=== PATIENT | female | born 1945 | race African-American/Black ===

== ENCOUNTER 2023-07-19 14:19 | Outpatient (CLI) | payer MEDICARE, BC, SELFPAY ==
--- NOTE | 2023-07-19 14:39 | ECG_ITS ---
Measurements Intervals [place] Rate: 73 P: 36 TN: 154 QRS: -35 QRSD: 95 T: 7 QT: 384 QTc: 424 Interpretive Statements SINUS RHYTHM MARKED LEFT AXIS DEVIATION [QRS AXIS < -30] LOW QRS VOLTAGE IN PRECORDIAL LEADS [QRS DEFLECTION < 1.0 mV IN CHEST LEADS] NO PREVIOUS ECG AVAILABLE FOR COMPARISON Electronically Signed On 07-19-2023 16:08:12 ACCOUNT CONTACT ASSOCIATE by Justen Daigle M.D.
[2023-07-19 15:05] LABS: Anion Gap 11 mmol/L (8-16); Blood Urea Nitrogen 18 mg/dL (7-17); Calcium 9.5 mg/dL (8.4-10.2); Carbon Dioxide 30 mmol/L (22-30); Chloride 97 mmol/L (98-107); Estimated Glomerular Filt Rate > 60; Glucose 356 mg/dL (65-110); Potassium 3.8 mmol/L (3.4-5.0); Sodium 138 mmol/L (137-145)
[2023-07-19 15:06] LABS: INR 0.9; Partial Thromboplastin Time 23.6 SECONDS (22.3-36.8); Prothrombin Time 12.8 Seconds (11.1-14.7)
== END 2023-07-19 14:20 | disposition home or self-care (01) ==
PROVIDERS: Anesthesiology; PCP Family Medicine; Visit Provider Urology
DX: Z01.818 Encounter for other preprocedural examination (principal); N20.0 Calculus of kidney; E11.9 Type 2 diabetes mellitus without complications; R93.1 Abnormal findings on diagnostic imaging of heart and coronary circulation
CPT/HCPCS: 36415; 80048; 85610; 85730; 87086; 87147; 87181; 87186; 93005

== ENCOUNTER 2023-08-01 10:08 | Outpatient (CLI) | payer MEDICARE, BC, SELFPAY ==
[2023-08-01 10:48] LABS: INR 0.9; Prothrombin Time 12.1 Seconds (11.1-14.7)
[2023-08-01 10:49] LABS: Partial Thromboplastin Time 23.2 SECONDS (22.3-36.8)
== END 2023-08-01 10:09 | disposition home or self-care (01) ==
LOC: ANHSURGERY 10:10
PROVIDERS: PCP Family Medicine; Visit Provider Urology
DX: Z01.812 Encounter for preprocedural laboratory examination (principal); N20.0 Calculus of kidney
CPT/HCPCS: 36415; 85610; 85730; 87086

== ENCOUNTER 2023-08-05 00:28 | Day surgery (SDC) | payer MEDICARE, BC, SELFPAY ==
--- NOTE | 2023-07-19 13:31 | PC.NURSE ---
Report to the Outpatient Waiting Room, entrance under the green pavilion located off [facility], at time _0930 on date _07/22/23 . Planned Procedure Time: _1130 . Time changes happen often and if your time is changed the preop area will call you the afternoon before. - You and your visitor will be asked to self-screen and do not enter if you have any COVID symptoms. - A mask is optional within the hospital at this time. Patients may have clear liquids (water, carbonated beverages, clear teas, apple juice) until 3 hours prior to surgery(8:30AM ) with a maximum of 20 ounces. - No food from midnight until time of surgery - Infants may have breast milk until 4 hours before surgery, infant formula 6 hours prior to surgery. - Children will be allowed to drink immediately following surgery. If applicable, please bring a bottle or sippy cup to assist with drinking. Juice, water, soda, and popsicles are readily available. For infants on formula, please bring formula the day of surgery. Pacifiers are allowed. Take the following medications with a SIP of water the morning of surgery: ___AMLODIPINE DO NOT STOP ANY OF YOUR OTHER PRESCRIPTION MEDICATIONS PRIOR TO SURGERY ?EXCEPT THE FOLLOWING Medications to discontinue per physician ____PATIENT STATES LAST DOSE ASPIRIN 07/12/23 Please no make-up, nail welsh, hairspray, perfume, deodorant, or body powder the day of surgery. No jewelry (including any body piercings) or valuables the day of surgery, leave them at home. Please take a shower or bath the night before, or the morning of, surgery with an antibacterial soap. Wear comfortable, loose fitting clothing. Children are encouraged to wear pajamas. - Jewelry must be removed prior to entering the operating room. Rings and piercings that are not removed may be cut off. - The hospital will not accept responsibility for valuables. - Please leave all valuables, including medications, at home the day of surgery. If you are going home after surgery, a licensed truck driver supervisor must drive you home. - NO public transportation without another adult if you receive anesthesia. - We recommend that an adult stay with you for 24 hours following discharge. - We also recommend that you do not drive, make important decision, drink alcoholic beverages, or take any drugs that were not prescribed by your health care provider for at least 24 hours after your discharge time. For Pediatric surgeries, we recommend two adults accompany the child home. Follow any additional instructions given to you from your surgeon. If you or anyone in your household have experienced Covid symptoms in the past week, please notify your surgeon or the nurse liaison at the phone number below for possible testing. Telephone instructions given to _PATIENT and asked if any additional questions and then verbalized understanding. Patient advised to call surgeon office or pre surgery nurse liaison [phone] if any additional questions.
[2023-07-19 13:46] VITALS: BMI 38.4
--- NOTE | 2023-08-01 08:31 | PC.NURSE ---
Addendum entered by Holli Verdugo RN 08/01/23 08:34: PT STATES LAST DOSE ASPIRIN WAS 07/12/23 Original Note: Report to the Outpatient Waiting Room, entrance under the [place] pavilion located off [facility], at time _0800 on date ___08/05/23____. Planned Procedure Time: __1000 . Time changes happen often and if your time is changed the preop area will call you the afternoon before. - You and your visitor will be asked to self-screen and do not enter if you have any COVID symptoms. - A mask is optional within the hospital at this time. Patients may have clear liquids (water, carbonated beverages, clear teas, apple juice) until 3 hours prior to surgery ( 7 AM )with a maximum of 20 ounces. - No food from midnight until time of surgery - Infants may have breast milk until 4 hours before surgery, infant formula 6 hours prior to surgery. - Children will be allowed to drink immediately following surgery. If applicable, please bring a bottle or sippy cup to assist with drinking. Juice, water, soda, and popsicles are readily available. For infants on formula, please bring formula the day of surgery. Pacifiers are allowed. Take the following medications with a SIP of water the morning of surgery: __AMLODIPINE, DO NOT STOP ANY OF YOUR OTHER PRESCRIPTION MEDICATIONS PRIOR TO SURGERY ?EXCEPT THE FOLLOWING Medications to discontinue per physician PT STATES LAST DOSE 07/12/23 Please no make-up, nail nepali, hairspray, perfume, deodorant, or body powder the day of surgery. No jewelry (including any body piercings) or valuables the day of surgery, leave them at home. Please take a shower or bath the night before, or the morning of, surgery with an antibacterial soap. Wear comfortable, loose fitting clothing. Children are encouraged to wear pajamas. - Jewelry must be removed prior to entering the operating room. Rings and piercings that are not removed may be cut off. - The hospital will not accept responsibility for valuables. - Please leave all valuables, including medications, at home the day of surgery. If you are going home after surgery, a licensed food service driver must drive you home. - NO public transportation without another adult if you receive anesthesia. - We recommend that an adult stay with you for 24 hours following discharge. - We also recommend that you do not drive, make important decision, drink alcoholic beverages, or take any drugs that were not prescribed by your health care provider for at least 24 hours after your discharge time. For Pediatric surgeries, we recommend two adults accompany the child home. Follow any additional instructions given to you from your surgeon. If you or anyone in your household have experienced Covid symptoms in the past week, please notify your surgeon or the nurse liaison at the phone number below for possible testing. Telephone instructions given to ___PATIENT and asked if any additional questions and then verbalized understanding. Patient advised to call surgeon office or pre surgery nurse liaison [phone] if any additional questions.
--- NOTE | 2023-08-01 08:47 | PC.NURSE ---
PT WAS SCHEDULED FOR ESWL 07/22/23 POSITIVE URINE CULTURE. TREATED WITH ABX . PT STATES NO OTHER CHANGE IN HEALTH HX SINCE LAST INTERVIEW ON 07/19/23
[2023-08-05] VITALS (7 sets, daily range): BP systolic 147–161; BP diastolic 82–99; PULSE 67–87; RESP 17–22; TEMP 36.4–36.6; O2SAT 95–100
--- NOTE | ~2023-08-05 | XR_ITS ---
Supine and upright views of the abdomen Clinical history: Lithotripsy COMPARISON: 01/27/2018 Findings: Bowel gas pattern is nonspecific. No evidence for obstruction or free air. Bilateral renal stones are present, measuring 11 mm on the left, and 7 mm on the right. Multiple presumed calcified p elvic phleboliths are present, stable from prior exam. Osseous structures are intact. Impression: Bilateral nephrolithiasis, as above. Reviewed, dictated and finalized at location M. ALING PROJECT ENGINEER Impression: Bilateral nephrolithiasis, as above.
--- NOTE | 2023-08-05 06:10 | WPDHPUPDATE1 ---
History and Physical Update Update Date/Time: 08/05/23 06:10 History and Physical has been reviewed, including an updated exam of the patient. There are NO changes in the patient's condition. Risks, benefits, and alternatives have been discussed and questions answered. Patient agrees to proceed with procedure.
[2023-08-05] MEDS: LACTATED RINGERS 1,000 ML 30 ML IV CONT ×2 (08:35→10:37)
[2023-08-05 08:40] LABS: Glucose Point of Care 404 mg/dl (65-105)
[2023-08-05 08:40] LABS: Glucose Point of Care 419 mg/dl (65-105)
--- NOTE | 2023-08-05 08:46 | P.PNAN_ITS ---
Anes - Initial Pre Proc Eval Procedure: Operation Date: 08/05/23 10:00 Proposed Procedures p Left Extracorporeal Shock Wave Lithotripsy - Thanh Colon MD Date/Time: 08/05/23 08:46 Surgeon: Thanh Colon MD Pre Op Diagnosis: left kidney stones Patient Data Age: 78 Gender: F Height: 1.57 m Weight: 91.9 kg Last Vital Signs Temp 36.4 C 08/05/23 08:39 Pulse 87 08/05/23 08:39 Resp 18 08/05/23 08:39 BP 148/89 H 08/05/23 08:39 Pulse Ox 99 08/05/23 08:39 O2 Del Method Room Air 08/05/23 08:39 Allergies Allergy/AdvReac Type Severity Reaction Status Date / Time Penicillins Allergy Unknown RASH,ITCHIN Verified 08/05/23 08:16 G levofloxacin AdvReac Other Verified 08/05/23 08:16 Home Medications Medication Instructions Recorded Confirmed Type amlodipine 5 mg tablet 5 mg PO DAILY 07/19/23 08/05/23 History aspirin 81 mg tablet,delayed 81 mg PO HS 07/19/23 08/05/23 History release (Adult Low Dose Aspirin) ergocalciferol (vitamin D2) 1,250 50,000 unit PO WEEKLY 07/19/23 08/05/23 History mcg (50,000 unit) capsule metformin 500 mg tablet,extended 500 mg PO DAILY 07/19/23 08/05/23 History release 24 hr simvastatin 20 mg tablet 20 mg PO HS 07/19/23 08/05/23 History Laboratory Tests 08/05/23 08/05/23 08:30 08:33 POC Capillary Glucose 404 H mg/dl 419 H mg/dl (65-105) (65-105) Patient hx anesthesia problems: none Family hx anesthesia problems: none Results Review: All pre-operative results and documents have been reviewed as part of the pre- operative evaluation. [facility] Social History Social History Smoking status: Never smoker Living arrangements: with family Spiritual care concerns: No Anes - Eval Final PreProcedure Day of Procedure 08/05/23 08:46 Patient weight: obese Heart: regular rate and rhythm Lungs: clear to auscultation Airway: Mallampati scale class II Neurological: alert and oriented Last oral intake: >/= 8 hours ASA classification: III Emergent: no Anesthetic plan: proceed Anesthesia type and monitoring: general LMA and standard monitoring Results Review: All pre-operative results and documents have been reviewed as part of the pre- operative evaluation. Informed Consent: The patient's anesthetic plan and its attendant risks and benefits were discussed with the patient/family/POA. Questions were solicited and answers provided to the satisfaction of the patient/family/POA.
[2023-08-05] MEDS: INSULIN HUMAN REGULAR (*BKC) 100 UNITS/ML 15 UNITS SUB-Q (08:55)
[2023-08-05 09:50] LABS: Glucose Point of Care 371 mg/dl (65-105)
[2023-08-05] MEDS: ceFAZolin 2 GM/D5W 50 ML 2 GM/50 ML BAG IVPB (09:54)
--- NOTE | 2023-08-05 10:23 | W.PM.PROC2 ---
Procedure Note - Detailed Date of Procedure 08/05/23 Pre-op Diagnosis Left kidney stones Post-op Diagnosis Same Procedure Performed Left ESWL Surgeon Thanh Colon MD Anesthesia General Description of Procedure The patient was brought to the operative suite where she was placed in the supine position on the Dornier lithotripsy table. The focal point of the lithotripter was placed at a 9mm left renal calculus. A total of 2500 shocks were delivered at a power setting of 4. There appeared to be good fragmentation of the stone. The patient tolerated the procedure well and was taken to the recovery room in good condition. Drains No Packing No Pathology None sent Complications No immediate complications Condition Stable Disposition PACU
[2023-08-05 10:43] LABS: Glucose Point of Care 350 mg/dl (65-105)
--- NOTE | 2023-08-05 10:46 | SUR.PHASEI ---
Notified Dr. De La Paz regarding patient's blood sugar check in PACU. Dr. De La Paz stated when patient met criteria she could be discharged. No further orders received.
[2023-08-05] MEDS: oxyCODONE HCL (*CRX) 5 MG TAB IR PO (12:10)
== END 2023-08-05 12:42 | disposition home or self-care (01) ==
PROVIDERS: PCP Family Medicine; Visit Provider Urology
PROC: (CPT 50590; principal; 2023-08-05 10:00)
DX: N20.0 Calculus of kidney (principal); E11.9 Type 2 diabetes mellitus without complications; Z79.84 Long term (current) use of oral hypoglycemic drugs; Z79.82 Long term (current) use of aspirin; E66.9 Obesity, unspecified; Z68.37 Body mass index [BMI] 37.0-37.9, adult; Z85.6 Personal history of leukemia
CPT/HCPCS: 50590; 74018; 82948; A9270; J0690; J1815; J2405; J2704; J3010; J7120

== ENCOUNTER 2023-10-14 14:10 | Outpatient (CLI) | payer MEDICARE, BC, SELFPAY ==
--- NOTE | ~2023-10-14 | XR_ITS ---
EXAMINATION: XR abdomen/kub 1V INDICATION: Calculus of kidney TECHNIQUE: Supine views of the abdomen were obtained on 2 radiographs. COMPARISON: 08/05/2023 FINDINGS: There is a 7 mm stone of the right kidney lower pole. An 8 mm stone is present in the left kidney which is decreased in density and size since the comparison radiograph. There are multiple phl eboliths of the pelvis. The bowel gas pattern is normal. There is mild osteoarthritis of the hips. IMPRESSION: 1. Bilateral nephrolithiasis with interval decrease in density and size of the left kidney stone, lik elsiha due to lithotripsy. Reviewed, dictated and finalized at location F. IMPRESSION: 1. Bilateral nephrolithiasis with interval decrease in density and size of the left kidney stone, likely due to lithotripsy.
== END 2023-10-14 14:11 | disposition home or self-care (01) ==
PROVIDERS: PCP Family Medicine; Visit Provider Urology
DX: N20.0 Calculus of kidney (principal)
CPT/HCPCS: 74018

== ENCOUNTER 2023-10-25 08:38 | Outpatient (CLI) | payer MEDICARE, BC, SELFPAY ==
[2023-10-25 09:55] LABS: Anion Gap 4 mmol/L (4-12); Blood Urea Nitrogen 10 mg/dL (7-17); Calcium 9.4 mg/dL (8.4-10.2); Carbon Dioxide 32 mmol/L (22-30); Chloride 101 mmol/L (98-107); Estimated Glomerular Filt Rate > 60; Glucose 132 mg/dL (65-110); Potassium 3.3 mmol/L (3.4-5.0); Sodium 137 mmol/L (137-145)
[2023-10-25 10:12] LABS: INR 0.9; Partial Thromboplastin Time 25.2 Seconds (22.3-36.8); Prothrombin Time 12.7 Seconds (11.1-14.7)
== END 2023-10-25 08:39 | disposition home or self-care (01) ==
LOC: ANHSURGERY 08:42
PROVIDERS: Anesthesiology; PCP Family Medicine; Visit Provider Urology
DX: Z01.818 Encounter for other preprocedural examination (principal); N20.0 Calculus of kidney; E11.9 Type 2 diabetes mellitus without complications
CPT/HCPCS: 36415; 80048; 85610; 85730; 87077; 87086; 87088

== ENCOUNTER 2023-10-28 01:10 | Day surgery (SDC) | payer MEDICARE, BC, SELFPAY ==
[2023-10-21 14:40] VITALS: BMI 37.3
--- NOTE | 2023-10-21 15:03 | PC.NURSE ---
Report to the Outpatient Waiting Room, entrance under the green pavilion located off [facility], at time __9:30AM on date ___10/28/23____. Planned Procedure Time: __11:30AM . Time changes happen often and if your time is changed the preop area will call you the afternoon before. - You and your visitor will be asked to self-screen and do not enter if you have any COVID symptoms. - A mask is optional within the hospital at this time. Patients may have clear liquids (water, carbonated beverages, clear teas, apple juice) until 3 hours prior to surgery with a maximum of 20 ounces. - No food from midnight until time of surgery. Take the following medications with a SIP of water the morning of surgery: ___AMLODIPINE DO NOT STOP ANY OF YOUR OTHER PRESCRIPTION MEDICATIONS PRIOR TO SURGERY ?EXCEPT THE FOLLOWING Medications to discontinue per physician ____HOLD ASPIRIN 7 DAYS PRE-OP PER DR HAAS- LAST DOSE 10/20/23 HOLD ALL VITAMINS/SUPPLEMENTS 3 DAYS PRE-OP- LAST DOSE 10/24/23 Please no make-up, nail german, hairspray, perfume, deodorant, or body powder the day of surgery. No jewelry (including any body piercings) or valuables the day of surgery, leave them at home. Please take a shower or bath the night before, or the morning of, surgery with an antibacterial soap. Wear comfortable, loose fitting clothing. - Jewelry must be removed prior to entering the operating room. Rings and piercings that are not removed may be cut off. - The hospital will not accept responsibility for valuables. - Please leave all valuables, including medications, at home the day of surgery. If you are going home after surgery, a licensed regional owner operator truck driver must drive you home. - NO public transportation without another adult if you receive anesthesia. - We recommend that an adult stay with you for 24 hours following discharge. - We also recommend that you do not drive, make important decision, drink alcoholic beverages, or take any drugs that were not prescribed by your health care provider for at least 24 hours after your discharge time. Follow any additional instructions given to you from your surgeon. If you or anyone in your household have experienced Covid symptoms in the past week, please notify your surgeon or the nurse liaison at the phone number below for possible testing. Telephone instructions given to ____PATIENT and asked if any additional questions and then verbalized understanding. Patient advised to call surgeon office or pre surgery nurse liaison [phone] if any additional questions.
[2023-10-28] VITALS (8 sets, daily range): BP systolic 149–174; BP diastolic 79–93; PULSE 61–79; RESP 12–18; TEMP 36.2–36.3; O2SAT 96–100
--- NOTE | ~2023-10-28 | XR_ITS ---
EXAMINATION: XR abdomen/kub 1V DATE: 10/28/2023 09:35 INDICATION: Kidney stone. TECHNIQUE: A supine view of the abdomen on 2 radiographs was obtained. COMPARISON: Abdomen radiographs 10/14/2023 FINDINGS: Calcifications in the pelvis are likely phleboliths. There is an 8 mm stone in right kidney . There is an 8 mm stone in left kidney. There are no dilated loops of bowel. IMPRESSION: 1. Bilateral kidney stones. Reviewed, dictated and finalized at location A. IMPRESSION: 1. Bilateral kidney stones.
--- NOTE | 2023-10-28 06:10 | WPDHPUPDATE1 ---
History and Physical Update Update Date/Time: 10/28/23 06:10 History and Physical has been reviewed, including an updated exam of the patient. There are NO changes in the patient's condition. Risks, benefits, and alternatives have been discussed and questions answered. Patient agrees to proceed with procedure.
[2023-10-28] MEDS: LACTATED RINGERS 1,000 ML 30 ML IV CONT (10:00)
[2023-10-28 10:07] LABS: Glucose Point of Care 116 mg/dl (65-105)
--- NOTE | 2023-10-28 10:35 | P.PNAN_ITS ---
Anes - Initial Pre Proc Eval Procedure: Operation Date: 10/28/23 11:30 Proposed Procedures p Right Extracorporeal Shock Wave Lithotripsy - Thanh Colon MD Date/Time: 10/28/23 10:35 Surgeon: Thanh Colon MD Pre Op Diagnosis: right renal stones Patient Data Age: 78 Gender: F Height: 1.59 m Weight: 94.2 kg Last Vital Signs Temp 97.3 F L 10/28/23 09:42 Pulse 79 10/28/23 09:42 Resp 18 10/28/23 09:42 BP 156/80 H 10/28/23 09:42 Pulse Ox 100 10/28/23 09:42 O2 Del Method Room Air 10/28/23 09:42 Allergies Allergy/AdvReac Type Severity Reaction Status Date / Time Penicillins Allergy Unknown RASH,ITCHIN Verified 10/21/23 14:36 G levofloxacin AdvReac Other Verified 10/21/23 14:36 Home Medications Medication Instructions Recorded Confirmed Type amlodipine 5 mg tablet 5 mg PO QAM 07/19/23 10/21/23 History aspirin 81 mg tablet,delayed 81 mg PO HS 07/19/23 10/21/23 History release (Adult Low Dose Aspirin) ergocalciferol (vitamin D2) 1,250 50,000 unit PO WEEKLY 07/19/23 10/21/23 History mcg (50,000 unit) capsule metformin 500 mg tablet,extended 500 mg PO DAILY 07/19/23 10/21/23 History release 24 hr simvastatin 20 mg tablet 20 mg PO HS 07/19/23 10/21/23 History Laboratory Tests 10/28/23 10:03 POC Capillary Glucose 116 H mg/dl (65-105) Patient hx anesthesia problems: none Family hx anesthesia problems: none Results Review: All pre-operative results and documents have been reviewed as part of the pre-op erative evaluation. [facility] Social History Social History Smoking status: Never smoker Living arrangements: alone Spiritual care concerns: No Anes - Eval Final PreProcedure Day of Procedure 10/28/23 10:35 Patient weight: obese Heart: regular rate and rhythm Lungs: clear to auscultation Airway: Mallampati scale class II and special considerations Neurological: alert and oriented Last oral intake: >/= 8 hours ASA classification: III Emergent: no Anesthetic plan: proceed Anesthesia type and monitoring: general LMA and standard monitoring Results Review: All pre-operative results and documents have been reviewed as part of the pre- operative evaluation. Informed Consent: The patient's anesthetic plan and its attendant risks and benefits were discussed with the patient/family/POA. Questions were solicited and answers provided to the satisfaction of the patient/family/POA.
[2023-10-28] MEDS: ceFAZolin 2 GM/D5W 50 ML 2 GM/50 ML BAG IVPB (11:05)
--- NOTE | 2023-10-28 11:37 | W.PM.PROC2 ---
Procedure Note - Detailed Date of Procedure 10/28/23 Pre-op Diagnosis Right renal stones Post-op Diagnosis Same Procedure Performed Right ESWL Surgeon Thanh Colon MD Anesthesia General Description of Procedure The patient was brought to the operative suite where she was placed in the supine position on the Dornier lithotripsy table. The focal point of the lithotripter was placed at a 5-6mm right renal calculus. A total of 2500 shocks were delivered at a power setting of 4. There appeared to be good fragmentation of the stone. The patient tolerated the procedure well and was taken to the recovery room in good condition. Packing No Pathology Yes Complications No immediate complications Condition Stable Disposition PACU
[2023-10-28 12:04] LABS: Glucose Point of Care 91 mg/dl (65-105)
--- NOTE | 2023-10-28 12:10 | SUR.PHASEI ---
1210: Simple mask removed.
== END 2023-10-28 13:15 | disposition home or self-care (01) ==
PROVIDERS: PCP Family Medicine; Visit Provider Urology
PROC: (CPT 50590; principal; 2023-10-28 11:30)
DX: N20.0 Calculus of kidney (principal); Z79.84 Long term (current) use of oral hypoglycemic drugs; Z79.82 Long term (current) use of aspirin; E66.9 Obesity, unspecified; Z68.37 Body mass index [BMI] 37.0-37.9, adult
CPT/HCPCS: 50590; 74018; 82948; J0690; J7120

== ENCOUNTER 2023-11-04 14:26 | Outpatient (CLI) | payer MEDICARE, BC, SELFPAY ==
--- NOTE | ~2023-11-04 | XR_ITS ---
XR abdomen/kub 1V 11/04/2023 14:46 Indication: Kidney stones Procedure: KUB Comparison: 10/28/2023 Findings: Bowel gas pattern is nonobstructive. There are are bilateral renal stones. There are multip le pelvic calcifications. Cannot exclude bladder or distal ureteral stone. Impression: 1: Bilateral nephrolithiasis. Possible distal ureteral or bladder stones. Consider correlation with C T. Reviewed, dictated and finalized at location A. Impression: 1: Bilateral nephrolithiasis. Possible distal ureteral or bladder stones. Consi hero correlation with CT.
== END 2023-11-04 14:27 | disposition home or self-care (01) ==
PROVIDERS: PCP Family Medicine; Visit Provider Urology
DX: N20.0 Calculus of kidney (principal)
CPT/HCPCS: 74018

== ENCOUNTER 2025-06-11 09:24 | Outpatient (CLI) | payer MEDICARE, SELFPAY ==
--- NOTE | ~2025-06-11 | CT_ITS ---
EXAM/PROCEDURE: CT abdomen pelvis wo con HISTORY: ureteral calculus COMPARISON: None available. TECHNIQUE: Noncontrast CT of the abdomen and pelvis FINDINGS: No hydroureteronephrosis. Bilateral nonobstructing kidney stones. No obstructing ureteral stones seen. No urinary bladder stones. Numerous calcifications overlie the lower pelvis in the expected course of the ureters and nonobstructing small stones are not excluded. In the right kidney, too stones are present in the lower pole with the largest measuring 5 x 2 mm. In the left kidney, at least 5 stones are present with the largest in the lower pole, measuring 5 x 4 mm. Smaller stones are present in the mid and upper pole as well. The bowel gas pattern is nonobstructive with no free air free fluid or pneumatosis seen. Cholelithiasis with no gross CT evidence of acute cholecystitis or pancreatitis. Stomach is unopacified but grossly normal. No grossly inflamed appendix or AAA. No bulky mesenteric or retroperitoneal lymphadenopathy or masses seen. Tiny fat-containing right inguinal hernia. Anteflex uterus and adnexal regions appear grossly normal. Diffuse degenerative changes throughout the bones which otherwise appear intact. Lung bases clear. Heart size normal. Trace pericardial effusion. IMPRESSION: 1. Directed noncontrast exam demonstrating bilateral nonobstructing kidney stones as above with no obstructing ureteral stones. A nonobstructing ureteral stone is not excluded. 2. Several chronic findings as above. Reviewed, dictated and finalized at location A. CARD TENDER IMPRESSION: 1. Directed noncontrast exam demonstrating bilateral nonobstructing kidney ston es as above with no obstructing ureteral stones. A nonobstructing ureteral ston e is not excluded. 2. Several chronic findings as above.
== END 2025-06-11 09:25 | disposition home or self-care (01) ==
PROVIDERS: PCP Family Medicine; Visit Provider Physician Assistant
DX: N20.0 Calculus of kidney (principal); N20.1 Calculus of ureter
CPT/HCPCS: 74176